=== PATIENT | male | born 1990 | race Two or more races ===

== ENCOUNTER 2017-09-11 10:05 | Emergency (ER) | payer SELFPAY ==
[~2017-09-11] VITALS: Ht 180.3 cm; Wt 121.0 kg
[2017-09-11 10:12] VITALS: BP 168/87
[2017-09-11] MEDS ORDERED: DEXAMETHASONE 4 MG TABLET ONE (10:40)
[2017-09-11] MEDS ORDERED: DEXAMETHASONE 4 MG TABLET PO ONE (11:00)
== END 2017-09-11 11:04 | disposition home or self-care (01) ==
LOC: ED 10:42
DX: J02.0 Streptococcal pharyngitis (principal)
CPT/HCPCS: 99283

== ENCOUNTER 2018-10-02 19:53 | Emergency (ER) | payer SELFPAY ==
[~2018-10-02] VITALS: Ht 180.3 cm; Wt 137.2 kg
[2018-10-02] MEDS ORDERED: ALBUTEROL/IPRATROPIUM 2.5MG/0.5MG, 3 ML ONE (20:24)
[2018-10-02] MEDS ORDERED: ALBUTEROL/IPRATROPIUM 2.5MG/0.5MG, 3 ML NPPB ONE (20:30)
[2018-10-02] MEDS ORDERED: IBUPROFEN 200 MG TABLET PO ONE (20:30)
[2018-10-02] MEDS ORDERED: IBUPROFEN 200 MG TABLET ONE (20:36)
[2018-10-02] MEDS ORDERED: LEVOFLOXACIN 750 MG TABLET ONE (20:41)
[2018-10-02 20:45] LABS: RAPID INFLUENZA A Negative (Negative); RAPID INFLUENZA B Negative (Negative)
[2018-10-02] MEDS ORDERED: LEVOFLOXACIN 750 MG TABLET PO ONE (21:00)
[2018-10-02 21:35] VITALS: BP 138/80
== END 2018-10-02 21:37 | disposition home or self-care (01) ==
LOC: ED 20:25
DX: J15.9 Unspecified bacterial pneumonia (principal); R50.81 Fever presenting with conditions classified elsewhere
CPT/HCPCS: 71046; 87400; 94640; 99284; J7512; J7620